=== PATIENT | male | born 1955 | race Caucasian/White ===

== ENCOUNTER 2017-03-31 18:15 | Emergency (ER) | payer OTHER ==
[~2017-03-31] VITALS: Ht 182.9 cm; Wt 104.3 kg
[2017-03-31] MEDS ORDERED: ATOR80 PO (19:13)
[2017-03-31] MEDS ORDERED: Cefazolin1 GM/50 ML IV (19:13)
[2017-03-31] MEDS ORDERED: ASPI81CH PO (19:13)
[2017-03-31] MEDS ORDERED: LOSA50 PO (19:14)
[2017-03-31] MEDS ORDERED: METF500 PO (19:14)
[2017-03-31] MEDS ORDERED: EZET10 PO (19:14)
[2017-03-31] MEDS ORDERED: CLOP75 PO (19:14)
[2017-03-31] MEDS ORDERED: HYDR1TAB94 PO (19:15)
[2017-03-31] MEDS ORDERED: METO100ER PO (19:15)
== END 2017-03-31 20:38 | disposition home or self-care (01) ==
LOC: ER 18:15
DX: Z48.817 Encounter for surgical aftercare following surgery on the skin and subcutaneous tissue (principal); Z88.5 Allergy status to narcotic agent; Z79.899 Other long term (current) drug therapy; Z79.82 Long term (current) use of aspirin; Z79.891 Long term (current) use of opiate analgesic
CPT/HCPCS: 96374; 99283; J0690